=== PATIENT | female | born 1980 | race Caucasian/White ===

== ENCOUNTER 2016-08-21 08:04 | Emergency (ER) ==
--- NOTE | 2016-08-21 09:15 | Diag Imaging Result Document ---
PROCEDURE NAME: ANKLE COMPLETE RIGHT - 08/21/2016 RIGHT ANKLE, 3 VIEWS: COMPARISON: None. FINDINGS: Bones are intact and normally aligned. Joint spaces and soft tissues are clear. IMPRESSION: Negative exam.
[2016-08-21] MEDS ORDERED: MORPHINE IM ONE (09:52)
[2016-08-21] MEDS ORDERED: ZOFRAN ODT SL ONE (09:52)
--- NOTE | 2016-08-21 09:59 | PROVIDER DOCUMENTATION ---
HPI-Musculoskeletal Pain/Inj - GENERAL Chief Complaint: Extremity Injury Stated Complaint: EXTREMITY INJURY Time Seen by Provider: 08/21/16 09:49 Source: patient - HX OF PRESENT ILLNESS-MUSKULOSKELTAL Nature of Presenting Problem: PATIENT REPORTS FELL WHILE GETTING OUT OF BED THIS MORNING AND RIGHT ANKLE TWISTED. C/O PAIN TO RIGHT LATERAL ANKLE. DENIES ANY OTHER INJURY. ALSO REPORTS "VERY NAUSEATED". Quality of Pain: reports: sharp, throbbing Severity in ED: moderate Onset/Duration: just prior to arrival Timing: still present Modifying Factors: improves with: movement Any recent injury?: Yes (SEE HPI) Similar Symptoms Previously?: No Recently seen or treated by another doctor?: No - FALL INJURY Location of Pain/Injury: reports: other (LEFT ANKLE) Pain Radiation: reports: no radiation Reason for Fall: reports: tripped Symptoms prior to fall:: reports: none Loss of Consciousness: no loss of consciousness Injury Associated Symptoms: reports: nausea - LOWER EXTREMITY PAIN/INJURY Lower Extremities Pain: ankle: right Review of Systems - Adult - REVIEW OF SYSTEMS - ADULT Constitutional: reports: no symptoms reported Eyes: reports: no symptoms reported Ears, Nose, Mouth & Throat: reports: no symptoms reported Cardiovascular: reports: no symptoms reported Respiratory: reports: no symptoms reported Gastrointestinal: reports: nausea, vomiting Genitourinary: reports: no symptoms reported Musculoskeletal: reports: see HPI Integumentary: reports: no symptoms reported Neurological: reports: no symptoms reported Psychiatric: reports: no symptoms reported Endocrine: reports: no symptoms reported Hematologic/Lymphatic: reports: no symptoms reported Allergic/Immunologic: reports: no symptoms reported Past History - Adult - PAST MEDICAL HISTORY-ADULT Review of Records: reports: Nursing Assessment Review, Medications Reviewed, Social history reviewed & non-contributory. Major Childhood Illnesses: reports: denies history Cardiovascular: reports: denies history Respiratory: reports: denies history Gastrointestinal: reports: denies history Obstetrical/Gynecological: reports: denies history Genitourinary: reports: denies history Musculoskeletal: reports: chronic pain Neurological: reports: headaches/migraines Psychiatric: reports: anxiety, depression, psychiatric problems Endocrine/Immune: reports: denies history Other Conditions: reports: denies history - PRIOR SURGERIES/PROCEDURES Surgical/Procedure History: reports: cholecystectomy, BTL, tonsillectomy, back/ neck - IMMUNIZATION STATUS Childhood Immunizations: See Nurse Assessment Flu Vaccine: See Nurse Assessment - FAMILY HISTORY Family History: reviewed, not pertinent Physical Exam-Injury Related - Physical Exam-Injury Related Initial Vital Signs Reviewed: Yes General Appearance: appears well Immobilization?: negative: backboard, C-collar, applied in ED, 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 2+ RIGHT PEDAL PULSE PALPABLE. CAPILLARY REFILL BRISK, LESS THAN 3 SECONDS. +ROM TO RIGHT TOES.) Neurologic: grossly normal, no motor/sensory deficits Psych/Mental Status: normal mood/affect - Glascow Coma Score Best Eye Response (Stevan): (4) open spontaneously Best Verbal Response (Stevan): (5) oriented Best Motor Response (Hinckley): (6) obeys commands Progress - PLAN OF CARE/RESULTS Progress/Plan/Lab Results: Vital Signs - 24 hr 08/21/16 08:21 Temperature 98.0 F Pulse Rate 90 Respiratory 20 Rate Blood Pressure 143/078 O2 Sat by Pulse 100 Oximetry Orders Category Date Time Status ANKLE COMPLETE RIGHT [RAD] Stat Exams 08/21/16 08:26 Draft Morphine Med 08/21/16 09:52 Discontinued 4 mg IM NOW ONE Ondansetron Odt [Zofran Odt] Med 08/21/16 09:52 Discontinued 4 mg SL NOW ONE XRAY NEGATIVE, PER RADIOLOGY REPORT. Departure - Departure Time of Disposition Order: 10:00 DIAGNOSIS: Nausea Ankle sprain Qualifiers: Encounter type: initial encounter Laterality: right Disposition: HOME 01 Certified Medical Emergency: Emergent Condition: Good Additional Instructions: FOLLOW UP WITH DR. SAMS IF SYMPTOMS ARE NOT IMPROVED IN 7 DAYS. KEEP FOOT ELEVATED AND APPLY ICE PACK FOR 15-20 MINUTE INTERVALS. Prescriptions: Tramadol [Ultram] 50 mg PO Q6H PRN PRN #12 tablet PRN Reason: Pain Referrals: None,PCP [Primary Care Provider] - Jose A Sams MD [STAFF PHYSICIAN] - Attestation - Physician/ ZENOBIA Attestation Patient care was provided by Advanced Practice Provider:: Yes Advanced Practice Provider:: Kristian Pierce Advanced Practice Provider documentation review:: The Mid-level provider documentation, treatment plan and medical decision making was reviewed by the physician who agrees with all treatment and medical decision making by the MLP.
[2016-08-21 10:28] VITALS: BP 140/82
== END 2016-08-21 10:27 | disposition home or self-care (01) ==
LOC: P.ED 08:04
DX: S93.401A Sprain of unspecified ligament of right ankle, initial encounter (principal); R11.2 Nausea with vomiting, unspecified; M25.571 Pain in right ankle and joints of right foot; M25.471 Effusion, right ankle; W01.0XXA Fall on same level from slipping, tripping and stumbling without subsequent striking against object, initial encounter
CPT/HCPCS: J2270